=== PATIENT | female | born 1995 | race Caucasian/White ===

== ENCOUNTER → 2019-03-28 | Outpatient (CLI) | payer OTHER | LOC: COL.RAD 07:23 | DX: M54.2 Cervicalgia (principal); G89.29 Other chronic pain ==

== ENCOUNTER → 2020-06-02 | Outpatient (CLI) | payer OTHER ==
[2020-06-02 09:47] LABS: ALBUMIN 4.5 gm/dL (3.5-5.0); BILIRUBIN,TOTAL 0.5 mg/dL (0.0-1.0); CALCIUM 9.2 mg/dL (8.4-10.2); CHOLESTEROL RISK RATIO 4.8; CREATININE, serum 0.74 (0.52-1.25); POTASSIUM 4.1 mmol/L (3.4-5.0); TOTAL PROTEIN 7.5 gm/dL (6.4-8.2)
[2020-06-02 10:17] LABS: THYROID STIMULATING HORMONE 1.06 uIU/mL (0.465-4.680)
[2020-06-06 16:17] LABS: RENIN,PLASMA 8.9 ng/mL/h (())
[2020-06-07 14:50] LABS: 17 a-HYDROXYPROGESTERONE XXX
== END ==
LOC: COL.LAB 08:43
PROVIDERS: Internal Medicine
DX: E25.9 Adrenogenital disorder, unspecified (principal); E27.40 Unspecified adrenocortical insufficiency